=== PATIENT | female | born 1970 | race Hispanic/Latino ===

== ENCOUNTER 2022-09-30 17:32 | Emergency (ER) | payer SELFPAY | END 2022-09-30 18:32 | disposition home or self-care (01) | LOC: ERS 17:32 | DX: R10.13 Epigastric pain (principal); I10 Essential (primary) hypertension; F17.210 Nicotine dependence, cigarettes, uncomplicated | CPT/HCPCS: 99283 ==

== ENCOUNTER 2022-12-11 00:35 | Emergency (ER) | payer OTHER, SELFPAY ==
[2022-12-11] MEDS ORDERED: Lidocaine 1% PF 5 ML VIAL ONE (01:42)
[2022-12-11] MEDS ORDERED: Boostrix 0.5 ML (Tdap) VIAL (>/=7 yrs of age) ONE (01:42)
[2022-12-11] MEDS ORDERED: HYDROcodone/Acetaminophen 10/325 mg Tablet ONE (01:49)
[2022-12-11] MEDS ORDERED: Bacitracin 1 PK ONE (02:21)
== END 2022-12-11 04:21 | disposition home or self-care (01) ==
LOC: ERS 00:35
DX: S61.011A Laceration without foreign body of right thumb without damage to nail, initial encounter (principal); I10 Essential (primary) hypertension; F17.210 Nicotine dependence, cigarettes, uncomplicated; W01.0XXA Fall on same level from slipping, tripping and stumbling without subsequent striking against object, initial encounter
CPT/HCPCS: 12002; 90471; 90715